=== PATIENT | male | born 1955 | race African-American/Black ===

== ENCOUNTER 2018-11-23 11:03 | Emergency (ER) | payer OTHER, MEDICAID ==
[~2018-11-23] VITALS: Ht 175.3 cm; Wt 72.6 kg
[2018-11-23 11:17] VITALS: BP 136/81
[2018-11-23 11:49] LABS: Urine Bacteria NONE SEEN /hpf (None Seen); Urine Blood Negative /uL (Negative); Urine WBC 8 /hpf (0 - 3)
== END 2018-11-23 16:25 | disposition left against medical advice (07) ==
LOC: ER 11:07
DX: N48.89 Other specified disorders of penis (principal); Z53.21 Procedure and treatment not carried out due to patient leaving prior to being seen by health care provider
CPT/HCPCS: 81001